=== PATIENT | female | born 1950 | race Native Hawaiian/Other Pacific Islander ===

== ENCOUNTER 2017-11-15 10:08 | Outpatient (CLI) | payer OTHER | END 2017-11-15 22:28 | disposition home or self-care (01) | LOC: RESP 10:08 | DX: R06.02 Shortness of breath (principal) ==

== ENCOUNTER 2018-01-23 14:07 | Outpatient (CLI) | payer OTHER ==
[2018-01-23 14:32] LABS: PLATELET COUNT 429 K/uL (152-353)
== END 2018-01-23 23:33 | disposition home or self-care (01) ==
LOC: LABW 14:07
PROVIDERS: Internal Medicine Cardiovascular Disease
DX: Z79.899 Other long term (current) drug therapy (principal); Z51.81 Encounter for therapeutic drug level monitoring
CPT/HCPCS: 36415; 85027; 85651

== ENCOUNTER 2021-09-23 10:50 | Outpatient (CLI) | payer OTHER | END 2021-09-23 21:43 | disposition home or self-care (01) | LOC: US 10:50 | PROVIDERS: ATTEND Nurse Practitioner | DX: R10.9 Unspecified abdominal pain (principal) ==

== ENCOUNTER 2022-01-06 11:18 | Outpatient (CLI) | payer OTHER | END 2022-01-06 19:22 | disposition home or self-care (01) | LOC: RAD 11:18 | PROVIDERS: ATTEND Nurse Practitioner | DX: M54.2 Cervicalgia (principal) ==